=== PATIENT | female | born 1950 | race Caucasian/White ===

== ENCOUNTER → 2018-05-25 08:04 | Outpatient (CLI) | payer OTHER, SELFPAY ==
[2018-05-25 10:13] LABS: Alanine Aminotransferase 20 IU/L (9-52); Albumin 4.1 g/dL (3.5-5.0); Albumin Globulin Ratio 1.9 (1.0-2.8); Alkaline Phosphatase 51 U/L (38-126); Aspartate Aminotransferase 17 IU/L (14-36); BUN Creatinine Ratio 21.4 (6-22); Bilirubin Total 0.4 mg/dL (0.2-1.3); Blood Urea Nitrogen 15 mg/dL (7-17); Calcium 9.2 mg/dL (8.4-10.2); Carbon Dioxide 33 mmol/L (22-32); Chloride 103 mmol/L (98-107); Estimated Glomerular Filt Rate > 60.0 mL/min (>60); Globulin 2.2 g/dL (1.7-4.1); Glucose 84 mg/dL (80-110); HEMOLYSIS < 15 (0-50); Potassium 4.8 mmol/L (3.4-5.1); Sodium 144 mmol/L (137-145); Total Protein 6.3 g/dL (6.3-8.2)
== END ==
PROVIDERS: PCP Internal Medicine; Visit Provider Internal Medicine
DX: K57.30 Diverticulosis of large intestine without perforation or abscess without bleeding (principal); L71.9 Rosacea, unspecified; M85.80 Other specified disorders of bone density and structure, unspecified site
CPT/HCPCS: 36415; 80053

== ENCOUNTER → 2018-06-08 12:16 | Outpatient (CLI) | payer OTHER, SELFPAY ==
[2018-06-08 13:22] LABS: Add Manual Diff / Slide Review NO; Basophils Percent Auto 0.5 % (0-2); Eosinophils Percent Auto 3.1 % (2-4); Hematocrit 40.5 % (36-46); Hemoglobin 13.6 g/dL (12.0-16.0); Lymphocytes Percent Auto 35.7 % (25-40); Mean Corpuscular HGB Conc 33.4 % (30-36); Mean Corpuscular Hemoglobin 29.2 PG (26-34); Mean Corpuscular Volume 87.2 fL (80-100); Monocytes Percent Auto 7.6 % (3-14); Neutrophils Absolute Auto 3500 /uL (3000-5900); Neutrophils Percent Auto 53.1 % (50-75); Platelet Count 304 X10^3/uL (150-400); Red Blood Cell Count 4.65 X10^6/uL (4.0-5.2); Red Cell Distribution Width 12.8 % (11.6-14.8); White Blood Cell Count 6.5 X10^3/uL (4.5-11.0)
[2018-06-08 13:52] LABS: Alanine Aminotransferase 19 IU/L (9-52); Albumin 4.3 g/dL (3.5-5.0); Albumin Globulin Ratio 1.7 (1.0-2.8); Alkaline Phosphatase 53 U/L (38-126); Aspartate Aminotransferase 19 IU/L (14-36); Bilirubin Total 0.3 mg/dL (0.2-1.3); Bilirubin Unconjugated 0.1 mg/dL (0.0-1.1); Globulin 2.5 g/dL (1.7-4.1); HEMOLYSIS < 15 (0-50); Lipase 85 U/L (23-300); Total Protein 6.8 g/dL (6.3-8.2)
[2018-06-08 14:00] LABS: C-Reactive Protein Quant < 0.5 mg/dL (<1.0)
== END ==
PROVIDERS: PCP Internal Medicine; Visit Provider Internal Medicine
DX: R10.11 Right upper quadrant pain (principal)
CPT/HCPCS: 36415; 80076; 83690; 85025; 86140

== ENCOUNTER → 2018-06-13 12:40 | Outpatient (CLI) | payer OTHER, SELFPAY | PROVIDERS: PCP Internal Medicine; Visit Provider Internal Medicine | DX: M81.0 Age-related osteoporosis without current pathological fracture (principal); Z78.0 Asymptomatic menopausal state | CPT/HCPCS: 77080 ==

== ENCOUNTER → 2018-06-18 11:11 | Outpatient (CLI) | payer OTHER, SELFPAY ==
--- NOTE | 2018-06-18 11:12 | DI.US.S_ITS ---
PROCEDURE: US ABDOMEN COMPLETE INDICATIONS: RUQ abd pain TECHNIQUE: Real-time scanning was performed of the abdominal and retroperitoneal organs, with image documentation. COMPARISON: [facility], US, ABDOMEN COMPLETE, 07/15/2009, 8:26. FINDINGS: Liver: Liver is normal in size and homogeneous in echotexture. 1 cm left hepatic lobe cyst. Gallbladder: Multiple gallstones present. No gallbladder wall thickening or pericholecystic fluid. Negative sonographic Torres sign. Biliary ducts: Intrahepatic bile ducts are non-dilated. Extrahepatic bile duct caliber measures 5.0 mm. Normal is 6-7 mm or less in diameter, or 10 mm or less post-cholecystectomy. Pancreas: Visualized portions of the pancreas are sonographically normal. Spleen: Spleen is normal in size and homogeneous in echotexture. Kidneys: Kidneys are normal in size and echotexture. Right kidney measures 10.1 cm long; left kidney measures 9.5 cm long. No hydronephrosis or nephrolithiasis. No solid masses. Aorta: Visualized aorta is normal in caliber at less than 3 cm. Iliacs: Not visualized. IVC: Intrahepatic inferior vena cava is patent. Miscellaneous: No free abdominal fluid. IMPRESSION: 1. Cholelithiasis without acute cholecystitis. 2. Left lobe liver cyst. Dictated by: Joey CRAMER Interpreted: Humaira Schroeder MD on 06/18/2018 at 16:09 Approved by: Humaira Schroeder M.D. on 06/18/2018 at 16:23
== END ==
PROVIDERS: PCP Internal Medicine; Visit Provider Internal Medicine
DX: R10.11 Right upper quadrant pain (principal); K80.20 Calculus of gallbladder without cholecystitis without obstruction; K76.89 Other specified diseases of liver
CPT/HCPCS: 76700

== ENCOUNTER → 2018-12-07 13:18 | Outpatient (CLI) | payer OTHER, SELFPAY ==
--- NOTE | 2018-12-07 | DI.MG.S_ITS ---
BILATERAL DIGITAL SCREENING MAMMOGRAM 3D/2D WITH CAD: 12/07/2018 CLINICAL: Routine screening. Comparison is made to exams dated: 12/06/2017 mammogram, 11/03/2016 mammogram, and 11/02/2015 mammogram - [facility]. The tissue of both breasts is predominantly fatty. Current study was also evaluated with a Computer Aided Detection (CAD) system. There are benign masses in the right breast. No significant masses, calcifications, or other findings are seen in either breast. There has been no significant interval change. IMPRESSION: There is no mammographic evidence of malignancy. A 1 year screening mammogram is recommended. This exam was interpreted at Station ID: [id number]. NOTE: For mammograms, a report in lay terms will be sent to the patient. Approximately 15% of breast malignancies will not be visualized mammographically. In the management of a palpable breast mass, a negative mammogram must not discourage biopsy of a clinically suspicious lesion. Electronically Signed By: Todd العلي/deirdre:12/07/2018 18:01:29 letter sent: Normal Exam ACR BI-RADS Category 2: Benign Finding(s) 3342F
== END ==
PROVIDERS: PCP Internal Medicine; Referring Provider Specialist; Visit Provider Internal Medicine
DX: Z12.31 Encounter for screening mammogram for malignant neoplasm of breast (principal)
CPT/HCPCS: 77063; 77067

== ENCOUNTER → 2020-04-07 11:13 | Outpatient (CLI) | payer MEDICARE, SELFPAY ==
--- NOTE | 2020-04-07 | DI.MG.S_ITS ---
BILATERAL DIGITAL SCREENING MAMMOGRAM 3D/2D WITH CAD: 04/07/2020 CLINICAL: Routine screening. Comparison is made to exams dated: 12/07/2018 mammogram, 12/06/2017 mammogram, and 11/03/2016 mammogram - [facility]. The tissue of both breasts is predominantly fatty. Current study was also evaluated with a Computer Aided Detection (CAD) system. There are benign masses in the right breast. No significant masses, calcifications, or other findings are seen in either breast. There has been no significant interval change. IMPRESSION: BENIGN There is no mammographic evidence of malignancy. A 1 year screening mammogram is recommended. This exam was interpreted at Station ID: [id number]. NOTE: For mammograms, a report in lay terms will be sent to the patient. Approximately 15% of breast malignancies will not be visualized mammographically. In the management of a palpable breast mass, a negative mammogram must not discourage biopsy of a clinically suspicious lesion. Electronically Signed By: Rich rojas/deirdre:04/07/2020 11:49:32 copy to: ZEFREINO JOLLY letter sent: Normal Exam ACR BI-RADS Category 2: Benign Finding(s) 3342F
== END ==
PROVIDERS: PCP Internal Medicine; Referring Provider Internal Medicine; Visit Provider Internal Medicine
DX: Z12.31 Encounter for screening mammogram for malignant neoplasm of breast (principal)
CPT/HCPCS: 77063; 77067

== ENCOUNTER → 2020-05-15 14:50 | Outpatient (CLI) | payer MEDICARE, SELFPAY ==
[2020-05-17 09:31] LABS: COVID19 Sendout Not Detected (Not Detect)
== END ==
PROVIDERS: PCP Internal Medicine; Visit Provider Physician Assistant
DX: Z11.59 Encounter for screening for other viral diseases (principal)
CPT/HCPCS: 87635

== ENCOUNTER 2020-05-18 06:37 | Day surgery (SDC) | payer MEDICARE, SELFPAY ==
[2020-05-18] VITALS (8 sets, daily range): BP systolic 96–129; BP diastolic 58–78; PULSE 49–70; RESP 12–17; TEMP 36.2–36.6; O2SAT 98–100; BMI 21.7
--- NOTE | 2020-05-18 | PATH_ITS ---
[facility] Accession Number: [id number] . 01 Material submitted: . colon - 120CM COLON POLYP . 01 Clinical history: . SDC . 02 Diagnosis: Colon Polyp at 120 cm, Biopsy: Tubulovillous adenoma, fragmented. Negative for high-grade dysplasia or malignancy. MRV 05/20/2020 0947 Local . 02 Electronically signed: . Devon Cantu MD, PhD, Pathologist NPI- [id number] . 01 Gross description: . 120CM COLON POLYP: Received in formalin are multiple fragment(s) of thomas, soft tissue measuring 2.5 x 1.3 x 0.5 cm in aggregate submitted entirely in 1 cassette(s) /QBJ 05/19/2020 0447 Local . 02 Pathologist provided ICD-10: D12.6 . 02 CPT . 107340 Performed at: 01 [facility] [address] [facility], [place], [place] [id number] MD Carrington Gavin MD Phone: [phone] Performed at: 02 [facility] [place] [address] [place], [place] [id number] MD Eun Mccray MD Phone: [phone]
[2020-05-18] MEDS: LACTATED RINGERS 1,000 ML 200 ML IV (07:20)
--- NOTE | 2020-05-18 07:40 | PM.HP.1 ---
History of Present Illness History of Present Illness Date Patient Seen: 05/18/20 Time Patient Seen: 07:41 Chief complaint: KYC Narrative: The patient presents for colorectal sreening. She had previously normal colonoscopy 10 years. No personal or family history of colon cancer. On further history denies any recent gastrointestinal symptoms. No nausea, vomiting, abdominal pain, loss of appetite, unexplained weight loss, change in bowel habits, diarrhea, constipation, melena, hematochezia, or bright red blood per rectum. Patient History Medical History Diverticulosis of large intestine (Chronic) Lumbar spine pain (Resolved) Menopausal syndrome (Chronic) Osteoarthritis of lumbar spine (Chronic 09/23/11) Osteopenia (Chronic 09/23/11) Rosacea (Chronic 09/23/11) Vaginal atrophy (Chronic) Surgical History Status post delivery (Resolved) Status post tonsillectomy and adenoidectomy (Resolved) Family & Social History Family History Father Diabetes mellitus Hypertension CAD (coronary artery disease) Grandmother Diabetes mellitus Grandfather Stroke Grandmother No problems noted. Social History: household members spouse,children lives independently Yes caregiver/support person No Tobacco & Substance use: Smoking Status Former smoker alcohol intake current alcohol intake frequency 0-2 drinks per day Substance Use Type does not use Meds Home Medications and Allergies Home Medications Medication Instructions Recorded Confirmed Type CA PANTOTHENATE/FOLIC ACID/VIT 1 tab PO QDAY #0 12/05/12 05/18/20 History (MULTIVITAMIN) VITAMIN D (Vitamin D3) 1,000 unit PO QDAY #0 12/05/12 05/18/20 History estradiol 10 mcg vaginal tablet 10 mcg VAG .COMPLEX #8 tab 04/30/20 05/18/20 Rx metronidazole 1 lisa TP TID PRN 05/18/20 05/18/20 History Allergies Allergy/AdvReac Type Severity Reaction Status Date / Time ibuprofen [IBUPROFEN] Allergy Severe SOB Verified 05/18/20 07:06 naproxen [From ALEVE] Allergy Unknown SOB Verified 05/18/20 07:06 tramadol [TRAMADOL] Allergy Unknown Verified 04/29/20 09:10 Review of Systems Review of Systems Narrative: A 10 point review of systems is negative except as noted in the HPI Exam Vital Signs (past 8 hours): - 05/18/20 07:12 Temperature 97.7 F Pulse Rate 69 Respiratory Rate 16 Blood Pressure 129/78 Pulse Oximetry 100 Oxygen Delivery Method Room Air Narrative Exam Narrative: General-no acute distress, well nourished adult female HEENT-moist mucous membranes, no scleral icterus Neck-supple, no lymphadenopathy Chest- non labored respirations, clear to auscultation bilaterally Cardiac-regular rate no peripheral edema Abdomen-soft, nontender, non distended Extremities-warm, well perfused Neurological-alert and oriented, no focal deficits Assessment & Plan Assessment and plan (1) Screening for colon cancer: Status: Acute Assessment & Plan narrative: The patient requires colorectal screening and colonoscopy is recommended. Technical details were discussed. Risks, benefits, alternatives explained. Risks including but not limited to myocardial infarction, aspiration, bleeding, pain, missed lesion, incomplete examination, need for further radiographic studies, colonic perforation, and need for major abdominal surgery were discussed. All questions were answered to their satisfaction, and they are in agreement with this plan.
[2020-05-18] MEDS: fentaNYL 250 MCG/5 ML INJ IV (07:57)
[2020-05-18] MEDS: MIDAZOLAM 5 MG/5 ML VIAL IV (07:57)
--- NOTE | 2020-05-18 08:24 | PM.OP.ENDO ---
Operative Date/Time/Diagnoses Date of procedure: 05/18/20 Time of procedure: 08:24 Pre-op diagnosis: Screening colonoscopy Post-op diagnosis: same Procedure & Clinicians Study performed: Colonoscopy Same procedure as scheduled: Yes Indications: 69-year-old woman last colonoscopy 10 years ago presents for routine screening. Surgeon: Jose Ruvalcaba Procedure Notes SCOAP/Timeout: Performed Procedure in detail: Patient placed in left lateral recumbent position. Time out was performed. Procedural sedation was administered with Versed and Fentanyl. Examination began with a thorough inspection of the perianal area there was no evidence of fissures, fistulae, external hemorrhoids or cutaneous malignancy. The colonoscopy scope was then placed into the rectum the the lumen was insufflated with air. The scope was carefully advanced forward. Ultimately the cecum was intubated and confirmed by identification of the ileocecal valve, the appendiceal orifice and the confluence of the taenia. The scope was then slowly withdrawn examining colon thoroughly in all directions. In the rectum the rectal columns were identified and retroflexion of the scope was performed for inspection of the distal rectum and anal canal. The colonoscopy was notable for the followin. Quality of the preparation-poor 2. 1 cm adenomatous appearing polyp at the ascending colon 120 cm from anal verge removed in pieces using hot snare. Entirety of polyp removed. 3. Extensive sigmoid diverticulosis and mild sigmoid narrowing Scope withdrawal time: 9 Sedation minutes: 34 Findings: diverticulosis and polyp Specimen(s): other (Ascending colon polyp and 120 cm from the anal verge) Complications: none Impression: Polyp Post-procedure Recommendations: Colonscopy in 5 years Disposition: same day surgery
== END 2020-05-18 09:37 | disposition home or self-care (01) ==
PROVIDERS: PCP Internal Medicine; Referring Provider Internal Medicine; Visit Provider Surgery
PROC: 0DJD8ZZ Inspection of Lower Intestinal Tract, Via Natural or Artificial Opening Endoscopic (ICD-10-PCS; CPT 45378; principal; 2020-05-18 07:45)
DX: Z12.11 Encounter for screening for malignant neoplasm of colon (principal); K57.30 Diverticulosis of large intestine without perforation or abscess without bleeding; D12.6 Benign neoplasm of colon, unspecified
CPT/HCPCS: 45385; 99152; 99153; J2250; J3010

== ENCOUNTER → 2021-06-21 11:30 | Outpatient (CLI) | payer MEDICARE, SELFPAY ==
--- NOTE | 2021-06-21 | DI.MG.S_ITS ---
BILATERAL DIGITAL SCREENING MAMMOGRAM 3D/2D WITH CAD: 06/21/2021 CLINICAL: Routine screening. Comparison is made to exams dated: 04/07/2020 mammogram, 12/07/2018 mammogram, and 12/06/2017 mammogram - [facility]. There are scattered fibroglandular elements in both breasts. Current study was also evaluated with a Computer Aided Detection (CAD) system. There are benign masses in the right breast. There also are benign calcifications in both breasts. No significant masses, calcifications, or other findings are seen in either breast. There has been no significant interval change. IMPRESSION: BENIGN There is no mammographic evidence of malignancy. A 1 year screening mammogram is recommended. This exam was interpreted at Station ID: [id number]. NOTE: For mammograms, a report in lay terms will be sent to the patient. Approximately 15% of breast malignancies will not be visualized mammographically. In the management of a palpable breast mass, a negative mammogram must not discourage biopsy of a clinically suspicious lesion. Electronically Signed By: Carrington corral/deirdre:06/21/2021 12:25:07 copy to: ZFEERINO JOLLY letter sent: Normal Exam ACR BI-RADS Category 2: Benign Finding(s) 3342F
== END ==
PROVIDERS: PCP Internal Medicine; Referring Provider Internal Medicine; Visit Provider Internal Medicine
DX: Z12.31 Encounter for screening mammogram for malignant neoplasm of breast (principal)
CPT/HCPCS: 77063; 77067

== ENCOUNTER → 2021-12-22 07:03 | Outpatient (CLI) | payer MEDICARE, SELFPAY ==
[2021-12-22 09:10] LABS: Alanine Aminotransferase 12 IU/L (<35); Albumin 4.1 g/dL (3.5-5.0); Albumin Globulin Ratio 1.9 (1.0-2.8); Alkaline Phosphatase 57 U/L (38-126); Aspartate Aminotransferase 19 IU/L (14-36); Bilirubin Total 0.6 mg/dL (0.2-1.3); Blood Urea Nitrogen 15 mg/dL (7-17); Calcium 8.6 mg/dL (8.4-10.2); Carbon Dioxide 29 mmol/L (22-32); Chloride 104 mmol/L (98-107); Cholesterol 180 mg/dL (140-199); Estimated Glomerular Filt Rate > 60 mL/min (>60); Globulin 2.2 g/dL (1.7-4.1); Glucose 92 mg/dL (80-110); HDL Cholesterol 87 mg/dL (40-60); HEMOLYSIS < 15 (0-50); LDL Cholesterol Calculated 84 mg/dL (<100); Potassium 4.1 mmol/L (3.4-5.1); Sodium 138 mmol/L (137-145); Total Protein 6.3 g/dL (6.3-8.2); Triglycerides 44 mg/dL (35-150)
[2021-12-22 09:26] LABS: TSH w/ Reflex to FT4 2.88 uIU/mL (0.47-4.68)
== END ==
PROVIDERS: PCP Internal Medicine; Referring Provider Internal Medicine; Visit Provider Internal Medicine
DX: Z13.6 Encounter for screening for cardiovascular disorders (principal); Z79.899 Other long term (current) drug therapy; Z13.1 Encounter for screening for diabetes mellitus; Z13.220 Encounter for screening for lipoid disorders; K59.00 Constipation, unspecified
CPT/HCPCS: 36415; 80053; 80061; 84443

== ENCOUNTER → 2022-04-20 11:51 | Outpatient (CLI) | payer MEDICARE, SELFPAY ==
--- NOTE | 2022-04-20 11:52 | DI.RAD.S_ITS ---
PROCEDURE: XR FOOT RT MIN 3V INDICATIONS: Right foot pain TECHNIQUE: 3 views of the foot were acquired. COMPARISON: None. FINDINGS: Bones: Minimally displaced third proxmal phalnyx fracture without intra-articular extension. No suspicious bony lesions. Soft tissues: No tibiotalar joint effusion. Achilles tendon appears normal. IMPRESSION: Minimally displaced third proxmal phalnyx fracture without intra-articular extension. Dictated by: Humaira Schroeder M.D. on 04/20/2022 at 12:14 Approved by: Humaira Schroeder M.D. on 04/20/2022 at 12:15
== END ==
PROVIDERS: PCP Internal Medicine; Referring Provider Registered Nurse; Visit Provider Registered Nurse
DX: M79.671 Pain in right foot (principal); S92.511A Displaced fracture of proximal phalanx of right lesser toe(s), initial encounter for closed fracture
CPT/HCPCS: 73630

== ENCOUNTER → 2022-07-14 13:12 | Outpatient (CLI) | payer MEDICARE, SELFPAY ==
--- NOTE | 2022-07-14 | DI.MG.S_ITS ---
BILATERAL DIGITAL SCREENING MAMMOGRAM 3D/2D WITH CAD: 07/14/2022 CLINICAL: Routine screening. Comparison is made to exams dated: 06/21/2021 mammogram, 04/07/2020 mammogram, and 12/07/2018 mammogram - [facility]. There are scattered areas of fibroglandular density in both breasts (category b / 25%-50% glandular tissue). Current study was also evaluated with a Computer Aided Detection (CAD) system. There are benign masses in the right breast. There also are benign calcifications in both breasts. No significant masses, calcifications, or other findings are seen in either breast. There has been no significant interval change. IMPRESSION: BENIGN There is no mammographic evidence of malignancy. A 1 year screening mammogram is recommended. Based on the Tyrer Cuzick model (a risk assessment model) the patient's lifetime risk is 5.8% and her 10 year risk is 3.6%. According to the ACR, ACS, and NCCN guidelines, an annual breast MRI exam along with mammogram is recommended if the patient's lifetime risk is 20% or greater. This exam was interpreted at Station ID: [id number]. NOTE: For mammograms, a report in lay terms will be sent to the patient. Approximately 15% of breast malignancies will not be visualized mammographically. In the management of a palpable breast mass, a negative mammogram must not discourage biopsy of a clinically suspicious lesion. Electronically Signed By: Todd العلي/deirdre:07/14/2022 17:53:21 copy to: ZEFERINO JOLLY letter sent: Normal Exam ACR BI-RADS Category 2: Benign Finding(s) 3342F
== END ==
PROVIDERS: PCP Internal Medicine; Referring Provider Internal Medicine; Visit Provider Internal Medicine
DX: Z12.31 Encounter for screening mammogram for malignant neoplasm of breast (principal)
CPT/HCPCS: 77063; 77067

== ENCOUNTER → 2023-07-18 14:44 | Outpatient (CLI) | payer MEDICARE, SELFPAY ==
--- NOTE | 2023-07-18 | DI.MG.S_ITS ---
BILATERAL DIGITAL SCREENING MAMMOGRAM 3D/2D WITH CAD: 07/18/2023 CLINICAL: Routine screening. Comparison is made to exams dated: 07/14/2022 mammogram, 06/21/2021 mammogram, 04/07/2020 mammogram, 12/07/2018 mammogram, 11/03/2016 mammogram, and 12/06/2017 mammogram - [facility]. There are scattered areas of fibroglandular density in both breasts (category b / 25%-50% glandular tissue). Current study was also evaluated with a Computer Aided Detection (CAD) system. There are benign masses or lymph nodes in the right breast. There also are benign calcifications in both breasts. No significant masses, calcifications, or other findings are seen in either breast. There has been no significant interval change. IMPRESSION: BENIGN There is no mammographic evidence of malignancy. A 1 year screening mammogram is recommended. Based on the Tyrer Cuzick model (a risk assessment model) the patient's lifetime risk is 5.5% and her 10 year risk is 3.7%. According to the ACR, ACS, and NCCN guidelines, an annual breast MRI exam along with mammogram is recommended if the patient's lifetime risk is 20% or greater. This exam was interpreted at Station ID: [id number]. NOTE: For mammograms, a report in lay terms will be sent to the patient. Approximately 15% of breast malignancies will not be visualized mammographically. In the management of a palpable breast mass, a negative mammogram must not discourage biopsy of a clinically suspicious lesion. Electronically Signed By: Cayden Carroll M.D. [facility] [place]/:07/18/2023 16:04:31 letter sent: Normal Exam ACR BI-RADS Category 2: Benign Finding(s) 3342F
== END ==
PROVIDERS: PCP Internal Medicine; Referring Provider Internal Medicine; Visit Provider Internal Medicine
DX: Z12.31 Encounter for screening mammogram for malignant neoplasm of breast (principal)
CPT/HCPCS: 77063; 77067

== ENCOUNTER → 2024-08-28 10:00 | Outpatient (CLI) | payer OTHER, SELFPAY ==
--- NOTE | 2024-08-28 10:03 | DI.MG.S_ITS ---
BILATERAL DIGITAL SCREENING MAMMOGRAM 3D/2D WITH CAD: 08/28/2024 CLINICAL: Routine screening. Comparison is made to exams dated: 07/18/2023 mammogram, 07/14/2022 mammogram, and 06/21/2021 mammogram - [facility]. The breasts are almost entirely fatty (category a/<25% glandular tissue). Current study was also evaluated with a Computer Aided Detection (CAD) system. There are benign calcifications in both breasts. No significant masses, calcifications, or other findings are seen in either breast. There has been no significant interval change. IMPRESSION: BENIGN There is no mammographic evidence of malignancy. A 1 year screening mammogram is recommended. Based on the Tyrer Cuzick model (a risk assessment model) the patient's lifetime risk is 3.2% and her 10 year risk is 2.6%. According to the ACR, ACS, and NCCN guidelines, an annual breast MRI exam along with mammogram is recommended if the patient's lifetime risk is 20% or greater. This exam was interpreted at Station ID: [id number]. NOTE: For mammograms, a report in lay terms will be sent to the patient. Approximately 15% of breast malignancies will not be visualized mammographically. In the management of a palpable breast mass, a negative mammogram must not discourage biopsy of a clinically suspicious lesion. Electronically Signed By: Bridget leone/deirdre:08/28/2024 16:28:51 letter sent: Normal Exam ACR BI-RADS Category 2: Benign
== END ==
PROVIDERS: PCP Internal Medicine; Referring Provider Internal Medicine; Visit Provider Internal Medicine
DX: Z12.31 Encounter for screening mammogram for malignant neoplasm of breast (principal); R92.1 Mammographic calcification found on diagnostic imaging of breast; R92.313 Mammographic fatty tissue density, bilateral breasts
CPT/HCPCS: 77063; 77067

== ENCOUNTER 2024-08-29 13:44 | Emergency (ER) | payer OTHER, SELFPAY ==
[2024-08-29] VITALS (8 sets, daily range): BP systolic 144–192; BP diastolic 70–84; PULSE 57–77; RESP 15–18; TEMP 37.1; O2SAT 96–100; BMI 21.9
--- NOTE | 2024-08-29 13:57 | EKG_ITS ---
[address] [address] Test Date: 2024-08-29 Pat Name: Tootie Bland Department: [facility] Room: Gender: Female Perioperative Nurse: OBED : 1950 Requested By: Order Number: [id number] Reading MD: Skyler Bustillos MD Measurements Intervals Aragon Rate: 66 P: 69 TN: 130 QRS: -5 QRSD: 88 T: 31 QT: 386 QTc: 404 Interpretive Statements Normal sinus rhythm Cannot rule out Anterior infarct , age undetermined Electronically Signed On 08-29-2024 16:31:55 PST by Skyler Bustillos MD
--- NOTE | 2024-08-29 13:59 | DI.RAD.S_ITS ---
PROCEDURE: XR CHEST 1V INDICATIONS: chest pain TECHNIQUE: One view of the chest was acquired. COMPARISON: None. FINDINGS: Surgical changes and devices: None. Lungs and pleura: Lungs are clear. No pleural effusions or pneumothorax. Mediastinum: Mediastinal contours appear normal. Heart size is normal. Bones and chest wall: No suspicious bony lesions. Overlying soft tissues appear unremarkable. IMPRESSION: No acute cardiopulmonary abnormality is seen. Approved by: Rich Pinedo M.D. on 08/29/2024 at 14:33
[2024-08-29 14:31] LABS: Add Manual Diff / Slide Review NO; Basophils Absolute Auto 100 /uL (0-100); Basophils Percent Auto 0.8 % (0-2); Eosinophils Absolute Auto 100 /uL (0-450); Hematocrit 41.1 % (36-46); Lymphocytes Absolute Auto 2400 /uL (1100-4500); Lymphocytes Percent Auto 35.3 % (25-40); Mean Corpuscular Hemoglobin 30.4 PG (26-34); Mean Corpuscular Volume 89.2 fL (80-100); Monocytes Absolute Auto 500 /uL (0-900); Neutrophils Absolute Auto 3600 /uL (1500-7000); Neutrophils Percent Auto 53.9 % (50-75); Platelet Count 277 X10^3/uL (150-400); Red Blood Cell Count 4.61 X10^6/uL (4.0-5.2); Red Cell Distribution Width 12.9 % (11.6-14.8); White Blood Cell Count 6.7 X10^3/uL (4.5-11.0)
[2024-08-29 14:38] LABS: Prothrombin Time 10.9 SECONDS (9.4-12.5)
[2024-08-29 14:41] LABS: PTT Partial Thromboplastin Tim 38 SECONDS (25.1-36.5)
[2024-08-29 14:42] LABS: Alanine Aminotransferase 18 IU/L (<35); Albumin 4.5 g/dL (3.5-5.0); Albumin Globulin Ratio 1.7 (1.0-2.8); Alkaline Phosphatase 62 U/L (38-126); Aspartate Aminotransferase 26 IU/L (14-36); BUN Creatinine Ratio 18.2 (6-22); Bilirubin Total 0.4 mg/dL (0.2-1.3); Blood Urea Nitrogen 14 mg/dL (7-17); Carbon Dioxide 25 mmol/L (22-32); Chloride 103 mmol/L (98-107); Creatine Kinase 59 U/L (30-135); Estimated Glomerular Filt Rate > 60 mL/min (>60); Globulin 2.6 g/dL (1.7-4.1); Glucose 97 mg/dL (80-110); HEMOLYSIS < 15 (0-50); Lipase 215 U/L (23-300); Magnesium 2.2 mg/dL (1.6-2.3); Sodium 135 mmol/L (137-145); Total Protein 7.1 g/dL (6.3-8.2)
[2024-08-29 14:54] LABS: NT-proBNP (BNP-Adult 18+) 145 pg/mL (<125); Troponin I < 0.012 ng/mL (0.01-0.034)
--- NOTE | 2024-08-29 15:58 | PC.NURSE ---
Pt reports fluttering in her heart that she states has been interfering with her being active. Pt denies any fluid overload in ankles or abdomen, etc. Respirations regular, clear and equal bilaterally. Pt states she does not take any prescription medications or have a diagnosis of any health problems.
--- NOTE | 2024-08-29 17:26 | ED.CHESTPAIN ---
HPI - Chest Pain General Chief Complaint: Chest Pain Stated Complaint: lightheaded, SOB, feels faint, rapid heartbeat Time Seen by Provider: 08/29/24 17:26 Source: patient Mode of arrival: Ambulatory Limitations: no limitations History of Present Illness HPI narrative: Patient is a healthy 74-year-old female presenting today with chest discomfort variety of symptoms. He reports that she has been to the dentist a handful of times lately for some procedures and noted that her blood pressures in the 140-150s. She is also noted that she was a slight headache in the mornings. She has been noticing last couple of weeks that she has some chest discomfort after she eats. She reports that she has to sit down after eating for about an hour. It does not really go into her chest it kind of stays in her epigastric region. No nausea or vomiting. She has not eating very much. She sometimes feels short of breath but not all the time. She has no coronary artery disease. She sometimes feels palpitations Related Data Home Medications Medication Instructions Recorded Confirmed VITAMIN D (Vitamin D3) 1,000 unit PO QDAY ##0 12/05/10/24/23 metronidazole 1 % topical gel 1 lisa TP TID PRN ROSACHIA 05/18/20 10/24/23 ascorbic acid (vitamin C) 1 tangela PO DAILY 12/17/21 10/24/23 Previous Rx's Medication Instructions Recorded estradiol 0.01% (0.1 mg/gram) 1 g vaginal 2XW #42.5 grams 05/16/23 vaginal cream estradiol 10 mcg vaginal tablet 10 mcg vaginal 2XW #24 tabs 11/21/23 omeprazole 20 mg capsule,delayed 20 mg PO DAILY #30 caps 08/29/24 release Allergies Allergy/AdvReac Type Severity Reaction Status Date / Time ibuprofen [IBUPROFEN] Allergy Severe SOB Verified 10/24/23 10:04 naproxen [From [facility]] Allergy Unknown SOB Verified 10/24/23 10:04 tramadol [TRAMADOL] Allergy Unknown Verified 10/24/23 10:04 Patient History Medical History (Updated 08/29/24 @ 17:57 by Trinidad Montanez DO) Vaginal atrophy Lumbar spine pain Menopausal syndrome Diverticulosis of large intestine Rosacea (09/23/11) Osteoarthritis of lumbar spine (09/23/11) Osteopenia (09/23/11) Surgical History Status post delivery Status post tonsillectomy and adenoidectomy Family History Father Diabetes mellitus Hypertension CAD (coronary artery disease) Grandmother Diabetes mellitus Grandfather Stroke Grandmother No problems noted. Social History marital status: number of children: 1 household members: spouse and children lives independently: Yes caregiver/support person: No housing: house pets and animals: Yes education level: college (3 YEARS ) occupational status: other (Retired) Previous occupational history: dental assistant medical assistant leisure activities: art (Crafts), music, reading and other (Gardening, Sewing, Cooking) Smoking Status: Former smoker Tobacco: How many years used: 12 Smokeless tobacco user: other (Cigarettes) quit status: quit date established (Stopped at age 35) second hand exposure: No alcohol intake: current substance use type: does not use Smoking Status: Former smoker alcohol intake frequency: 0-2 drinks per day Exam Initial Vital Signs Initial Vital Signs: Vital Signs Temperature 98.7 F 08/29/24 13:49 Pulse Rate 73 08/29/24 13:49 Respiratory Rate 16 08/29/24 13:49 Blood Pressure 192/84 H 08/29/24 13:49 Pulse Oximetry 100 08/29/24 13:49 Oxygen Delivery Method Room Air 08/29/24 13:49 GENERAL: Alert very well-appearing 74-year-old female and in no acute distress. HEENT: Head atraumatic,EOMI, pupils reactive, face symmetric, moist mucous membranes CARDIOVASCULAR: Regular rate and rhythm without murmurs, rubs or gallops. RESPIRATORY: Breath sounds equal bilaterally, no wheezes rales or rhonchi. ABDOMEN: Soft, nontender. Normoactive bowel sounds all 4 quadrants. No guarding or rebound. No epigastric pain negative Torres's sign no left upper quadrant pain EXTREMITIES: Normal range of motion, no clubbing or edema. Neurovascularly intact NEUROLOGICAL: Alert and oriented x4.Normal gait and speech. Cranial nerves II through XII grossly intact. SKIN: Warm, dry, no laceration, no petechiae, no rashes or lesions. Scores HEART Score Heart Score history: Slightly Suspicious Heart Score EKG: Normal Heart Score Age: > or = 65 years old Heart Score risk factors: No known risk factors Heart Score troponin: < or = to normal limit Heart Score Total: 2 Course Orders Ordered: ED Orders 08/29/24 13:57 EKG-12 Lead Stat 08/29/24 13:59 XR chest 1V Stat EKG-12 Lead Stat 08/29/24 14:23 Complete Blood Count AUTO DIFF Stat Comprehensive Metabolic Panel Stat Lipase Stat Magnesium Stat NT-proBNP (BNP-Adult 18+) Stat PTT Partial Thromboplastin Rip Stat Prothrombin Time INR Stat Troponin & CK Cardiac Panel Stat 08/29/24 17:26 Troponin I Stat Vital Signs Vital signs: Vital Signs - 8 hr 08/29/24 13:49 08/29/24 14:30 08/29/24 16:02 Temperature 98.7 F Pulse Rate 73 57 L 70 Respiratory Rate 16 18 15 Blood Pressure 192/84 H 170/79 H Pulse Oximetry 100 100 100 Oxygen Delivery Method Room Air Room Air 08/29/24 16:02 08/29/24 16:30 08/29/24 16:30 Temperature Pulse Rate 68 Respiratory Rate Blood Pressure 176/81 H 160/76 H Pulse Oximetry 97 Oxygen Delivery Method 08/29/24 17:00 08/29/24 17:00 08/29/24 17:26 Temperature Pulse Rate 66 66 Respiratory Rate 16 Blood Pressure 154/72 H Pulse Oximetry 97 98 Oxygen Delivery Method 08/29/24 17:26 08/29/24 17:30 08/29/24 17:30 Temperature Pulse Rate 77 Respiratory Rate 18 Blood Pressure 146/70 H 144/81 H Pulse Oximetry 98 Oxygen Delivery Method MDM - Chest Pain Lab Data 08/29/24 14:23 08/29/24 14:23 Labs: Lab Results 08/29/24 08/29/24 Range/Units 14:23 17:25 WBC 6.7 (4.5-11.0) X10^3/uL RBC 4.61 (4.0-5.2) X10^6/uL Hgb 14.0 (12.0-16.0) g/dL Hct 41.1 (36-46) % MCV 89.2 (80-100) fL MCH 30.4 (26-34) PG MCHC 34.0 (30-36) % RDW 12.9 (11.6-14.8) % Plt Count 277 (150-400) X10^3/uL Neut % (Auto) 53.9 (50-75) % Lymph % (Auto) 35.3 (25-40) % [place] % (Auto) 8.0 (3-14) % Eos % (Auto) 2.0 (2-4) % Baso % (Auto) 0.8 (0-2) % Neut # (Auto) 3600 (6556-3753) /uL Lymph # (Auto) 2400 (3726-6560) /uL [place] # (Auto) 500 (0-900) /uL Eos # (Auto) 100 (0-450) /uL Baso # (Auto) 100 (0-100) /uL PT 10.9 (9.4-12.5) SECONDS INR 1.0 (0.9-1.3) APTT 38 H (25.1-36.5) SECONDS Sodium 135 L (137-145) mmol/L Potassium 4.0 (3.4-5.1) mmol/L Chloride 103 (98-107) mmol/L Carbon Dioxide 25 (22-32) mmol/L BUN 14 (7-17) mg/dL Creatinine 0.77 (0.52-1.04) mg/dL Estimated GFR > 60 (>60) mL/min BUN/Creatinine Ratio 18.2 (6-22) Glucose 97 (80-110) mg/dL Calcium 9.0 (8.4-10.2) mg/dL Magnesium 2.2 (1.6-2.3) mg/dL Total Bilirubin 0.4 (0.2-1.3) mg/dL AST 26 (14-36) IU/L ALT 18 (<35) IU/L Alkaline Phosphatase 62 (38-126) U/L Total Creatine Kinase 59 (30-135) U/L Troponin I < 0.012 < 0.012 (0.01-0.034) ng/mL NT-Pro-B Natriuret Pep 145 H (<125) pg/mL Total Protein 7.1 (6.3-8.2) g/dL Albumin 4.5 (3.5-5.0) g/dL Globulin 2.6 (1.7-4.1) g/dL Albumin/Globulin Ratio 1.7 (1.0-2.8) Lipase 215 (23-300) U/L Imaging Data Chest x-ray: Radiologist's Impression: PROCEDURE: XR CHEST 1V INDICATIONS: chest pain TECHNIQUE: One view of the chest was acquired. COMPARISON: None. FINDINGS: Surgical changes and devices: None. Lungs and pleura: Lungs are clear. No pleural effusions or pneumothorax. Mediastinum: Mediastinal contours appear normal. Heart size is normal. Bones and chest wall: No suspicious bony lesions. Overlying soft tissues appear unremarkable. IMPRESSION: No acute cardiopulmonary abnormality is seen. Approved by: Rich Pinedo M.D. on 08/29/2024 at 14:33 ECG Data Attestation: I personally reviewed and interpreted this ECG as follows: Prior ECG tracings: not available for review Interpretation: Normal sinus rhythm rate 66 ID interval 130 QRS 88 QTC 404 no ischemic changes no priors to compare MDM Narrative Medical decision making narrative: MDM CC: Chest pain Complicating co-morbidities: None Medical records reviewed: Prior PCP record reports that she takes no prescription medication he was well-controlled lipids Differential considered: Palpitation acid reflux gastric ulcer acute coronary syndrome Exam documented above, pertinent findings include: Well-appearing 74-year-old female no left upper quadrant pain Lab Test results independently reviewed as above. Pertinent findings: Troponin negative x2 no electrolyte abnormality no NILES no anemia or leukocytosis Independently reviewed EKG as above Sinus rhythm no ischemia PVCs noted on monitor she was asymptomatic during the Imaging studies independently reviewed: Chest x-ray no acute cardiopulmonary process Consultations: None Treatments: None Re-evaluations: Patient remains stable completely asymptomatic in the emergency department Discussion: 74-year-old female presenting today with variety of symptoms. She overall appears very. He does have some PVC on the monitor. It sounds like she is having some chest discomfort after eating that she has a sit down for. This to be seems like it is more of acid reflux or GERD. She has no risk factors for acute coronary syndrome. She has a negative troponin here in the emergency department. She has a low risk heart score. At this time she is quite worried about her blood pressure. Blood pressure has been up and down has been as high with a systolic in the 190s but goes down to the want 140. At this time I recommend she monitor her blood pressure at home with a blood pressure cuff Discharge Plan Departure Patient Disposition: Home Clinical Impression: Atypical chest pain, Asymptomatic PVCs, GERD (gastroesophageal reflux disease) Instructions: DI for Atypical Chest Pain, GERD Diet Activity Restrictions/Additional Instructions: *You have been diagnosed with atypical chest, possible acid reflux *What to do: At this time I do recommend that you check your blood pressure 1 to 2 times daily record it. Please discuss with your primary care provider if you would benefit from medication or not. This may or may not be related to your mild headache I also recommend trying an antacid medication to see if it helps your symptoms. You will not noticed instant relief this will take about 2 weeks *Continue to take medications as directed Omeprazole 20 mg once a day for 2 weeks-sent to [facility] *Follow up with your primary care provider in 2-3 days or call [phone] *Return to ER if you should have increasing chest pain heaviness shortness of breath headaches missed tingling weakness or any new, worsening or concerning symptoms Prescriptions: New omeprazole 20 mg capsule,delayed release(DR/EC) 20 mg PO DAILY Qty: 30 0RF No Action VITAMIN D (Vitamin D3) 1,000 unit PO QDAY Qty: 0 estradiol 0.01 % (0.1 mg/gram) cream 1 g vaginal 2XW Qty: 42.5 3RF estradiol 10 mcg tablet 10 mcg vaginal 2XW Qty: 24 3RF ascorbic acid (vitamin C) 1 tangela PO DAILY metronidazole 1 % gel 1 lisa TP TID PRN (Reason: ROSACHIA) Referrals: Skyler Bustillos MD [Primary Care Provider] - Stand Alone Forms: Patient Portal/API/Survey
--- NOTE | 2024-08-29 17:50 | PC.NURSE ---
laying/sitting HR: 74 BP: 146/70 standing: HR: 72 BP: 144/81
[2024-08-29 17:55] LABS: Troponin I < 0.012 ng/mL (0.01-0.034)
--- NOTE | 2024-08-29 18:12 | PC.NURSE ---
PVC's that increase when pt stands up. Pt reports a mild headache during ER stay. MD aware
== END 2024-08-29 18:13 | disposition home or self-care (01) ==
PROVIDERS: Emergency Provider Emergency Medicine; PCP Internal Medicine
DX: K21.9 Gastro-esophageal reflux disease without esophagitis (principal); I49.3 Ventricular premature depolarization; R07.89 Other chest pain
CPT/HCPCS: 71045; 80053; 82550; 83690; 83735; 83880; 84484; 85025; 85610; 85730; 93005; 93010; 99283; 99284

== ENCOUNTER → 2024-09-19 09:52 | Outpatient (CLI) | payer OTHER, SELFPAY | PROVIDERS: PCP Internal Medicine; Referring Provider Internal Medicine; Visit Provider Internal Medicine | DX: I49.9 Cardiac arrhythmia, unspecified (principal) | CPT/HCPCS: 93242; 93244 ==